=== PATIENT | male | born 1955 | race Caucasian/White ===

== ENCOUNTER 2020-12-15 09:15 | Emergency (ER) | payer MEDICARE, MEDICAID, SELFPAY ==
--- NOTE | ~2020-12-15 | XR_ITS ---
EXAMINATION: XR WRIST, LEFT CLINICAL INFORMATION: Fall. Pain. COMPARISON: None TECHNIQUE: PA, lateral, and oblique views of the left wrist. FINDINGS: No acute fracture or dislocation is seen. There is a well-corticated soft tissue ossification adjacent to the dorsal wrist seen on the lateral view suggestive of changes related to old trauma. There is arthritis at the first RESIDENTIAL joint with joint space narrowing and osteophyte formation. There is arthritis at the radiocarpal joint with joint space narrowing. There is a disruption of the carpal rows with proximal migration of the capitate bone. There is lateral tilt of the lunate on the lateral view suggestive of DISI. There is a soft tissue calcification of the triangular fibrocartilage complex. There may be cystic changes seen in the scaphoid bone and ulnar styloid. XR/XR wrist LT min 3V IMPRESSION: No acute fracture or dislocation seen. Evidence of old trauma to the dorsal wrist. Arthritis at the first RESIDENTIAL joint and radiocarpal joints. Interruption of the carpal rows with proximal migration of the capitate bone and dorsal tilt of the lunate seen on the lateral view suggestive of DISI. Soft tissue calcification of the triangular fibrocartilage complex.
--- NOTE | ~2020-12-15 | XR_ITS ---
EXAMINATION: XR CHEST CLINICAL INFORMATION: Hypoxia COMPARISON: Previous chest x-ray April 2019 TECHNIQUE: Frontal view of the chest was obtained. FINDINGS: Exam is limited due to patient positioning. The cardiac and mediastinal contours are stable. There is a density projecting over the heart probably related to an esophageal hernia. This is unchanged. There is increased attenuation at the left lateral costophrenic angle. This may be related to overlying soft tissues. The lungs are otherwise clear. There is no pleural effusion or pneumothorax. There are degenerative changes of the spine. There are postsurgical changes to the right shoulder. There is an old right distal clavicle fracture. XR/XR chest 1V IMPRESSION: Limited exam due to patient positioning. No evidence for acute disease in the chest.
--- NOTE | ~2020-12-15 | CT_ITS ---
EXAMINATION: CT HEAD WITHOUT CONTRAST CLINICAL INFORMATION: Head injury. COMPARISON: CT brain 09/30/2015 and TECHNIQUE: Contiguous axial imaging was performed from the skull base to vertex without intravenous administration of contrast. This CT examination was performed using dose optimization techniques as appropriate, variously including the following: *Automated exposure control *Adjustment of mA and/or kV according to patient size (this includes techniques or standardized protocols for targeted exams where dose is matched to indication/reason for exam; i.e. extremities or head) *Use of iterative reconstruction technique DLP: 913 mGy-cm FINDINGS: There is no evidence of acute intracranial hemorrhage or territorial infarction. No abnormal mass effect or midline shift is seen. Sandy to white matter differentiation is well preserved. No extra-axial fluid collections are identified. The lateral ventricles are enlarged with mild asymmetry of the left lateral ventricle slightly larger. It is unchanged to previous exam from 2016. Mild prominence of cortical sulci and subarachnoid space seen in the frontal regions bilaterally. No sandy matter abnormality seen. There is no edema or mass effect. The osseous structures and soft tissues are normal. The mastoid air cells and visualized portions of the paranasal sinuses are well aerated. CT/CT head/brain wo con IMPRESSION: No acute intracranial process seen. Age-related cerebral volume loss. No major change since previous study 09/30/2015.
[2020-12-15 09:28] VITALS: BP 120/64; PULSE 86; O2SAT 94
[2020-12-15 09:29] VITALS: BP 110/56; PULSE 96; RESP 20; TEMP 36.7; O2SAT 90; BMI 36.7
--- NOTE | 2020-12-15 09:42 | ED.FALL ---
HPI - Fall General Chief Complaint: Fall Stated Complaint: fall/ blood thiners Time Seen by Provider: 12/15/20 09:37 Source: patient and EMS Mode of arrival: EMS Limitations: no limitations History of Present Illness HPI Narrative: 65-year-old male came in by ambulance for evaluation of mechanical fall. Patient's lives in assisted living mostly functional and independent, patient stated that his leg gave up and fell hit his head and lytes rest, patient is on Eliquis for atrial fibrillation, declined LOC, no neck pain, no headache. the only complaint is right wrist pain. Related Data Home Medications Medication Instructions Recorded Confirmed acetaminophen 650 mg 650 mg PO Q8H 08/05/20 08/05/20 tablet,extended release albuterol sulfate 2.5 mg INHALATION Q4-6H PRN 08/05/20 08/05/20 albuterol sulfate 90 mcg/actuation 2 puff INHALATION Q4-6H PRN 08/05/20 08/05/20 aerosol inhaler aripiprazole 15 mg tablet 15 mg PO DAILY 08/05/20 08/05/20 calcium carb 800 mg-magnes hydrox ml PO 08/05/20 08/05/20 270 mg-simeth 80 mg/10 mL oral susp lithium carbonate 150 mg capsule 150 mg PO DAILY cap 08/05/20 08/05/20 loperamide 2 mg capsule 2 mg PO QID PRN 08/05/20 08/05/20 rivaroxaban 20 mg tablet 20 mg PO DAILY 08/05/20 08/05/20 tiotropium bromide 18 mcg capsule 1 cap INHALATION DAILY 08/05/20 08/05/20 with inhalation device Previous Rx's Medication Instructions Recorded terazosin 5 mg capsule 5 mg PO BEDTIME #28 cap 06/12/20 trazodone 50 mg tablet 50 mg PO BEDTIME #28 tab 06/12/20 cholecalciferol (vitamin D3) 50 50 mcg PO DAILY #28 cap 10/10/20 mcg (2,000 unit) capsule duloxetine 60 mg capsule,delayed 60 mg PO BEDTIME #28 cap 10/10/20 release omeprazole 20 mg capsule,delayed 20 mg PO BID #56 cap 10/10/20 release ferrous sulfate 325 mg (65 mg 325 mg PO BID #56 tab 11/07/20 iron) tablet budesonide-formoterol HFA 160 2 puff PO BID 30 Days #10.2 g 11/27/20 mcg-4.5 mcg/actuation aerosol inhaler Allergies Allergy/AdvReac Type Severity Reaction Status Date / Time celery [CELERY] Allergy Severe LIPS SWELL Unverified 12/15/20 11:42 mayonnaise [MAYONNAISE] Allergy Mild HIVES Unverified 12/15/20 11:42 HAYFEVER AdvReac Mild RUNNY NOSE Uncoded 12/15/20 11:42 Review of Systems Review of Systems: All other systems are reviewed and are negative Constitutional: Reports as per HPI and Reports no additional constitutional complaints Eyes: Reports as per HPI and Reports no additional eye complaints Reports system reviewed and no additional complaints, except as documented Cardiovascular: Reports as per HPI and Reports no additional cardiovascular complaints Respiratory: Reports as per HPI and Reports no additional respiratory complaints Gastrointestinal: Reports as per HPI and Reports no additional gastrointestinal complaints Genitourinary: Reports no additional female genitourinary complaints Musculoskeletal: Reports no additional musculoskeletal complaints Skin/Breast: Reports system reviewed and no additional complaints, except as docu Psychiatric: Reports no additional psychiatric complaints Endocrine: Reports no additional endocrine complaints Hematologic/Lymphatic: Reports no additional hematologic/lymphatic complaints Allergic/Immunologic: Reports no additional allergic/immunologic complaints Reports system reviewed and no additional complaints, except as documented and Reports Abnormal speech present [facility] Past Medical History Medical History Acute meniscal injury of left knee Alcohol abuse Anxiety and depression BPH (benign prostatic hyperplasia) Cholelithiasis COPD (chronic obstructive pulmonary disease) Erectile dysfunction GERD (gastroesophageal reflux disease) Hypertension Hypogonadism Obesity (BMI 30-39.9) Osteoarthritis Peripheral vascular disease Pulmonary embolism Thrombophlebitis of right leg Tobacco abuse Tubular adenoma of colon Ventral hernia Surgical History Closed right clavicular fracture History of tonsillectomy No pertinent past surgical history Family History Family History Father CVD (cardiovascular disease) Mother Hypertension Brother No problems noted. Social History Social History Alcohol intake: never Smoking Status: Current every day smoker Cigarettes Per Day: 6 Advance Directives: Yes Advance Directives Information Provided: No Advance Directives on File: No Physical Exam Vital Signs: Vital Signs: Last Vital Signs Temp 98.1 F 12/15/20 09:29 Pulse 87 12/15/20 11:37 Resp 18 12/15/20 11:37 BP 121/53 L 12/15/20 11:37 Pulse Ox 90 L 12/15/20 11:37 Body Mass Index 36.7 Vital signs have been reviewed as appeared to be correct. Blood pressure normal. Heart rate normal. Respiration rate normal. Temperature normal. Oxygen saturation normal. Appearance: Alert. Oriented X3. No acute distress. Head: Normal external exam. Normocephalic. Atraumatic. No Maier signs noted. No raccoon eyes noted Eyes: PERRLA. EOMI. Conjunctiva and sclera normal. Eyelids normal. ENT: TM's Normal. Pharynx normal. Uvula midline. Moist mucous membranes. No trismus noted. No drooling noted. No muffled voice noted. Neck: Normal inspection. Neck supple. FROM. No adenopathy. Thyroid Normal. No meningeal signs. No neck mass noted. CVS: Normal heart rate and rhythm. Heart sound normal. No murmurs noted. Pulses normal throughout. Respiratory: No respiratory distress. Painless inspiration. Breath sounds normal. No wheezes/rales/rhonchi noted. Chest nontender. No accessory muscle usage noted or decreased air movement noted. Abdomen: Soft and nontender. Bowel sounds normal in all 4 quadrants. No distention noted. No organomegaly noted. No visible injury noted. Back: No CVA tenderness. Full range of motion noted. Skin: Skin warm and dry. Normal skin color. Normal skin turgor. No rashes/lesions/lacerations noted. Extremities: No lower extremity edema. Extremities exhibit normal range of motion. Mild tenderness left wrist no swelling, no deformity.. Neuro: Oriented X 3. No motor deficit. No sensory deficit. Reflexes normal. Course Course Course Narrative: Assessment and plan. Mechanical fall, patient had a head injury on quis, head CT is unremarkable, GCS of 15, no neurological deficit. No acute fracture of left wrist that x-ray is consistent with dorsal intercalated segment instability (DISI) deformity which is an old deformity requiring no acute intervention today. Reevaluation(s) Reevaluation #1: Patient was here initially for evaluation of mechanical fall had negative radiographic studies in the emergency department, patient was ready discharge noted that he has pulse oximetry of 90% on room air, had chest x-ray and other blood workup which is at his baseline, reviewing patient chart patient with history of COPD, with chronic elevation of bicarb, with baseline oxygenation in the low 90% patient is not using supplemental oxygen at home. Patient clinically appears stable to be discharged and follow up with his primary doctor. MDM - Fall Lab Data Attestation: I reviewed the patient's lab results. Result diagrams: 12/15/20 11:48 12/15/20 11:48 Labs: Lab Results 12/15/20 12/15/20 12/15/20 Range/Units 11:48 11:48 11:48 WBC 6.2 (4.8-10.8) X10*3/uL RBC 4.45 L (4.60-5.80) X10*6/uL Hgb 13.0 L (14.0-18.0) g/dl Hct 41.7 L (42-52) % MCV 93.7 (80-98) fL MCH 29.2 (27.0-33.0) pg MCHC 31.2 (31.0-36.0) g/dl RDW 13.4 (11.0-16.0) % Plt Count 194 (160-400) X10*3/uL MPV 8.6 L (9.4-12.4) fL Immature Gran % (Auto) 0.3 (0.0-0.4) % Neut % (Auto) 69.3 (45-73) % Lymph % (Auto) 14.6 L (20-40) % [place] % (Auto) 10.8 (2-11) % Eos % (Auto) 4.4 H (0-4) % Baso % (Auto) 0.6 (0-2) % Lymph # (Auto) 0.9 L (1.2-4.9) X10*3/uL [place] # (Auto) 0.7 (0.1-1.2) X10*3/uL Eos # (Auto) 0.3 (0.0-0.4) X10*3/uL Baso # (Auto) 0.0 (0.0-0.2) X10*3/uL Abs Immat Gran (auto) 0.02 (0.00-0.03) X10*3/uL Absolute Neuts (auto) 4.3 (2.0-8.3) X10*3/uL Absolute Nucleated RBC 0.000 (0.0-0.012) X10*3/uL Nucleated RBC % (auto) 0.0 (0.0-0.2) /100WBC Sodium 138 (135-145) mmol/L Potassium 4.7 (3.3-5.1) mmol/L Chloride 103 (96-108) mmol/L Carbon Dioxide 32 H (22-29) mmol/L Anion Gap 8 L (12-20) BUN 14 (9-16) mg/dL Creatinine 0.85 (0.5-1.4) mg/dL Estim Creat Clear Calc 134.4 Estimated GFR > 60 Random Glucose 82 (60-115) mg/dL Calcium 9.1 (8.4-10.2) mg/dL B-Natriuretic Peptide 26 (<100) pg/mL COVID-19 ([facility]) (Negative) COVID-19 Clin Com 12/15/20 Range/Units 11:48 WBC (4.8-10.8) X10*3/uL RBC (4.60-5.80) X10*6/uL Hgb (14.0-18.0) g/dl Hct (42-52) % MCV (80-98) fL MCH (27.0-33.0) pg MCHC (31.0-36.0) g/dl RDW (11.0-16.0) % Plt Count (160-400) X10*3/uL MPV (9.4-12.4) fL Immature Gran % (Auto) (0.0-0.4) % Neut % (Auto) (45-73) % Lymph % (Auto) (20-40) % [place] % (Auto) (2-11) % Eos % (Auto) (0-4) % Baso % (Auto) (0-2) % Lymph # (Auto) (1.2-4.9) X10*3/uL [place] # (Auto) (0.1-1.2) X10*3/uL Eos # (Auto) (0.0-0.4) X10*3/uL Baso # (Auto) (0.0-0.2) X10*3/uL Abs Immat Gran (auto) (0.00-0.03) X10*3/uL Absolute Neuts (auto) (2.0-8.3) X10*3/uL Absolute Nucleated RBC (0.0-0.012) X10*3/uL Nucleated RBC % (auto) (0.0-0.2) /100WBC Sodium (135-145) mmol/L Potassium (3.3-5.1) mmol/L Chloride (96-108) mmol/L Carbon Dioxide (22-29) mmol/L Anion Gap (12-20) BUN (9-16) mg/dL Creatinine (0.5-1.4) mg/dL Estim Creat Clear Calc Estimated GFR Random Glucose (60-115) mg/dL Calcium (8.4-10.2) mg/dL B-Natriuretic Peptide (<100) pg/mL COVID-19 ([facility]) Negative (Negative) COVID-19 Clin Com See Note Imaging Data Left wrist x-ray: Radiologist's impression: No acute fracture or dislocation seen. Evidence of old trauma to the dorsal wrist. Arthritis at the first LONG-TERM joint and radiocarpal joints. Interruption of the carpal rows with proximal migration of the capitate bone and dorsal tilt of the lunate seen on the lateral view suggestive of DISI. Soft tissue calcification of the triangular fibrocartilage complex. Head CT: Radiologist's impression: No acute intracranial process seen. Age-related cerebral volume loss. No major change since previous study 09/30/2015. Chest x-ray: Radiologist's impression: Limited exam due to patient positioning. No evidence for acute disease in the chest. Discharge Plan Discharge Clinical Impression: COPD (chronic obstructive pulmonary disease) Accident due to mechanical fall without injury Qualifiers: Encounter type: initial encounter Qualified Code(s): W19.XXXA - Unspecified fall, initial encounter Head injury Qualifiers: Encounter type: initial encounter Qualified Code(s): S09.90XA - Unspecified injury of head, initial encounter DISI (dorsal intercalated segment instability) Qualifiers: Laterality: left Qualified Code(s): M25.332 - Other instability, left wrist Patient Disposition: Home, Self-Care Additional Instructions: Follow-up with your primary doctor to assess for COPD and chronic hypoxia. Prescriptions: No Action terazosin 5 mg capsule 5 mg PO BEDTIME Qty: 28 RF: 5 trazodone 50 mg tablet 50 mg PO BEDTIME Qty: 28 RF: 5 duloxetine 60 mg capsule,delayed release(DR/EC) 60 mg PO BEDTIME Qty: 28 RF: 5 omeprazole 20 mg capsule,delayed release(DR/EC) 20 mg PO BID Qty: 56 RF: 5 cholecalciferol (vitamin D3) [Vitamin D3] 50 mcg (2,000 unit) capsule 50 mcg PO DAILY Qty: 28 RF: 5 ferrous sulfate 325 mg (65 mg iron) tablet 325 mg PO BID Qty: 56 RF: 11 budesonide-formoterol [Symbicort] 160-4.5 mcg/actuation HFA aerosol inhaler 2 puff PO BID 30 Days Qty: 10.2 RF: 11 aripiprazole [Abilify] 15 mg tablet 15 mg PO DAILY RF: 0 lithium carbonate 150 mg capsule 150 mg PO DAILY RF: 0 albuterol sulfate 2.5 mg /3 mL (0.083 %) solution for nebulization 2.5 mg inhalation Q4-6H PRNRF: 0 acetaminophen 650 mg tablet extended release 650 mg PO Q8H RF: 0 loperamide 2 mg capsule 2 mg PO QID PRNRF: 0 Mylanta Tonight 800-270-80 mg/10 mL suspension PO RF: 0 albuterol sulfate [Ventolin HFA] 90 mcg/actuation HFA aerosol inhaler 2 puff inhalation Q4-6H PRNRF: 0 Spiriva with HandiHaler 18 mcg capsule, w/inhalation device 1 cap inhalation DAILY RF: 0 Xarelto 20 mg tablet 20 mg PO DAILY RF: 0 Referrals: Po,Thea Heck MD [Primary Care Provider] - 2 days
[2020-12-15 11:37] VITALS: BP 121/53; PULSE 87; RESP 18; O2SAT 90
--- NOTE | 2020-12-15 11:40 | PC.NURSE ---
Pt's sats 90% on room air. Known history of COPD. LLL wheezing. MD aware. Discharge on hold at this time. placing orders.
[2020-12-15 11:54] LABS: MANUAL DIFF FLAG NO
[2020-12-15 12:02] LABS: Basophils Percent Auto 0.6 % (0-2); Eosinophils Absolute Auto 0.3 X10*3/uL (0.0-0.4); Eosinophils Percent Auto 4.4 % (0-4); Hematocrit 41.7 % (42-52); Imm Gran Abs Auto 0.02 X10*3/uL (0.00-0.03); Imm Gran Pct Auto 0.3 % (0.0-0.4); Lymphocytes Absolute Auto 0.9 X10*3/uL (1.2-4.9); Lymphocytes Percent Auto 14.6 % (20-40); Mean Corpuscular HGB Conc 31.2 g/dl (31.0-36.0); Mean Corpuscular Hemoglobin 29.2 pg (27.0-33.0); Mean Corpuscular Volume 93.7 fL (80-98); Mean Platelet Volume 8.6 fL (9.4-12.4); Monocytes Absolute Auto 0.7 X10*3/uL (0.1-1.2); Monocytes Percent Auto 10.8 % (2-11); Neutrophils Absolute Auto 4.3 X10*3/uL (2.0-8.3); Neutrophils Percent Auto 69.3 % (45-73); Platelet Count 194 X10*3/uL (160-400); Red Blood Count 4.45 X10*6/uL (4.60-5.80); Red Cell Distribution Width 13.4 % (11.0-16.0); White Blood Count 6.2 X10*3/uL (4.8-10.8)
[2020-12-15 12:19] LABS: COVID-19 Test Negative (Negative)
[2020-12-15 12:26] LABS: Anion Gap 8 (12-20); Blood Urea Nitrogen 14 mg/dL (9-16); Calcium 9.1 mg/dL (8.4-10.2); Carbon Dioxide 32 mmol/L (22-29); Chloride 103 mmol/L (96-108); Creatinine Clr Calc Pharmacy 134.4; Estimated Glomerular Filt Rate > 60; Glucose Random 82 mg/dL (60-115); Potassium 4.7 mmol/L (3.3-5.1); Sodium 138 mmol/L (135-145)
[2020-12-15 12:30] LABS: B Type Natriuretic Peptide 26 pg/mL (<100)
--- NOTE | 2020-12-15 13:20 | PC.NURSE ---
Pt's sats remain 90 on room air. Report given to [facility] nursing staff for discharge. The nursing staff state that he had been on o2 at night in the past but he refuses to wear it. Per ED MD recommendation to visit pcp soon to re-evaluate the need for home o2. This was explained to the nursing staff at [facility].
== END 2020-12-15 14:00 | disposition home or self-care (01) ==
PROVIDERS: Emergency Provider Emergency Medicine; PCP Internal Medicine
DX: J44.9 Chronic obstructive pulmonary disease, unspecified (principal); S09.90XA Unspecified injury of head, initial encounter; W01.0XXA Fall on same level from slipping, tripping and stumbling without subsequent striking against object, initial encounter; M25.332 Other instability, left wrist; I10 Essential (primary) hypertension; F17.210 Nicotine dependence, cigarettes, uncomplicated; Z20.822 Contact with and (suspected) exposure to COVID-19; Y93.9 Activity, unspecified; Y92.099 Unspecified place in other non-institutional residence as the place of occurrence of the external cause; Y99.9 Unspecified external cause status; Z86.711 Personal history of pulmonary embolism; Z79.01 Long term (current) use of anticoagulants; Z91.19 Patient's noncompliance with other medical treatment and regimen; Z99.81 Dependence on supplemental oxygen
CPT/HCPCS: 36415; 70450; 71045; 73110; 80048; 83880; 85025; 87635; 99283; 99284

== ENCOUNTER 2021-03-18 09:56 | Outpatient (REF) | payer MEDICARE, MEDICAID, SELFPAY ==
--- NOTE | ~2021-03-18 | XR_ITS ---
EXAMINATION: XR KNEE, LEFT CLINICAL INFORMATION: Pain. COMPARISON: None. TECHNIQUE: 4 views of the left knee. FINDINGS: There is loss of tricompartment joint space with periarticular spurring. No abnormal joint effusion seen. There is a small suprapatellar joint effusion noted. There is no loose bodies or bony erosive changes. XR/XR knee LT 4V IMPRESSION: Degenerative arthritic changes tricompartment with periarticular moderate spurring and mild suprapatellar joint effusion.
[2021-03-18 11:39] LABS: MANUAL DIFF FLAG NO
[2021-03-18 11:45] LABS: Basophils Absolute Auto 0.1 X10*3/uL (0.0-0.2); Basophils Percent Auto 0.9 % (0-2); Eosinophils Absolute Auto 0.1 X10*3/uL (0.0-0.4); Eosinophils Percent Auto 1.9 % (0-4); Hematocrit 44.9 % (42-52); Hemoglobin 13.9 g/dl (14.0-18.0); Imm Gran Abs Auto 0.03 X10*3/uL (0.00-0.03); Imm Gran Pct Auto 0.5 % (0.0-0.4); Immature Retic Fraction 8.2 % (2.3-13.4); Lymphocytes Percent Auto 15.1 % (20-40); Mean Corpuscular Hemoglobin 28.7 pg (27.0-33.0); Mean Corpuscular Volume 92.6 fL (80-98); Mean Platelet Volume 9.1 fL (9.4-12.4); Monocytes Absolute Auto 0.7 X10*3/uL (0.1-1.2); Neutrophils Absolute Auto 4.6 X10*3/uL (2.0-8.3); Neutrophils Percent Auto 71.6 % (45-73); Platelet Count 194 X10*3/uL (160-400); Red Blood Count 4.85 X10*6/uL (4.60-5.80); Red Cell Distribution Width 14.2 % (11.0-16.0); Reticulocyte Percent 1.3 % (0.5-1.8); Reticulocytes Absolute 0.064 X10*6/uL (0.026-0.095); White Blood Count 6.5 X10*3/uL (4.8-10.8)
[2021-03-18 12:12] LABS: Alanine Aminotransferase 9 U/L (0-40); Albumin Level 4.1 g/dL (3.5-5.0); Alkaline Phosphatase 77 U/L (39-117); Anion Gap 12 (12-20); Aspartate Amino Transferase 15 U/L (5-37); Bilirubin Total 0.5 mg/dL (0.0-1.0); Blood Urea Nitrogen 17 mg/dL (9-16); Calcium 9.5 mg/dL (8.4-10.2); Carbon Dioxide 33 mmol/L (22-29); Chloride 100 mmol/L (96-108); Cholesterol 138 mg/dL; Estimated Glomerular Filt Rate > 60; Glucose Random 100 mg/dL (60-115); HDL Cholesterol 47 mg/dL; Iron 69 mcg/dL (45-160); LDL Cholesterol Calculated 79 mg/dl; Potassium 4.9 mmol/L (3.3-5.1); Sodium 140 mmol/L (135-145); Total Protein 6.4 g/dL (6.5-8.0); Triglycerides 61 mg/dL
[2021-03-18 12:24] LABS: Percent Iron Saturation 29 % (15-50); Total Iron Binding Capacity 234 mcg/dL (228-428); Unsaturated Iron Binding 165 ug/dL
[2021-03-18 12:26] LABS: Ferritin 107 ng/mL (20-250); Free T4 (Free Thyroxine) 1.16 ng/dL (0.71-1.85); Prostate Specific Antigen Scr 0.97 ng/mL (<0.05-4.0); Thyroid Stimulating Hormone 1.01 uIU/mL (0.32-4.0)
[2021-03-18 12:41] LABS: Folate 7.9 ng/mL (> or = 4.0); Vitamin B12 519 pg/mL (200-900)
== END 2021-03-18 09:57 | disposition home or self-care (01) ==
LOC: HO.LAB 09:56
PROVIDERS: PCP Internal Medicine; Visit Provider Internal Medicine
DX: E78.00 Pure hypercholesterolemia, unspecified (principal); F32.9 Major depressive disorder, single episode, unspecified; F41.9 Anxiety disorder, unspecified; I10 Essential (primary) hypertension; M25.562 Pain in left knee; Z12.5 Encounter for screening for malignant neoplasm of prostate
CPT/HCPCS: 36415; 73564; 80053; 80061; 82607; 82728; 82746; 83540; 84153; 84439; 84443; 85025; 85045

== ENCOUNTER 2021-09-29 13:52 | Emergency (ER) | payer MEDICARE, MEDICAID, SELFPAY ==
--- NOTE | ~2021-09-29 | US_ITS ---
EXAMINATION: US VENOUS ULTRASOUND WITH DOPPLER LOWER EXTREMITY, BILATERAL CLINICAL INFORMATION: Bilateral lower extremity edema and pain COMPARISON: Bilateral DVT study 04/10/2014 TECHNIQUE: Ultrasound of the deep veins is performed from the hip to the calf with compression sonography and color and pulse Doppler assessment. Spectral analysis with color-flow imaging is performed. FINDINGS: RIGHT: There is normal venous compression and respiratory variation and augmented flow. The visualized common femoral vein, superficial femoral vein, profunda femoral vein, popliteal vein, and the trifurcation region shows no evidence of deep venous thrombosis. There is no significant popliteal fossa cyst. LEFT: There is normal venous compression and respiratory variation and augmented flow. The visualized common femoral vein, superficial femoral vein, profunda femoral vein, popliteal vein, and the trifurcation region shows no evidence of deep venous thrombosis. There is no significant posterior popliteal fossa cyst. 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 Similar findings were noted in 2013. If the patient's symptoms persist, followup ultrasound in 5 days 7 days might be of value to exclude proximal propagation from a non-visualized calf vein. US/US venous duplex LE BI IMPRESSION: No DVT demonstrated in either lower extremity. 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
--- NOTE | 2021-09-29 14:05 | ED.GENADULT ---
HPI - General Adult General Chief complaint: General Medical Stated complaint: LEG WEAKNESS Time Seen by Provider: 09/29/21 14:00 Source: patient and EMS Mode of arrival: EMS Limitations: no limitations History of Present Illness HPI narrative: 66 yo male with past medical history significant hypertension , AFib, pulmonary embolism, COPD, anxiety, depression here with reports of bilateral lower leg pain. Patient tells me he has had pain for months with no known injury or trauma. Patient tells me that he does not have pain at rest. He has pain when he starts to ambulate. He says sometimes the pain is so bad that he falls at home. He denies any weakness in the legs, no numbness or tingling in the legs. He denies any fevers, chills, leg swelling, shortness of breath or chest pain. He tells me he has been compliant with his xarelto. He does live in a residential home and he tells me they give him his medications. It is been recommended by his primary care doctor over the last year due to multiple falls that he go to a short-term rehab facility but he declined this. Related Data Home Medications Medication Instructions Recorded Confirmed loperamide 2 mg capsule 2 mg PO QID PRN 08/05/20 09/29/21 tiotropium bromide 18 mcg capsule 1 cap INHALATION DAILY 08/05/20 09/29/21 with inhalation device (Spiriva with HandiHaler) rivaroxaban 20 mg tablet (Xarelto) 20 mg PO QPM 09/29/21 09/29/21 trazodone 50 mg tablet 50 mg PO BEDTIME PRN 09/29/21 09/29/21 Previous Rx's Medication Instructions Recorded ferrous sulfate 325 mg (65 mg 325 mg PO BID #56 tab 11/07/20 iron) tablet budesonide-formoterol HFA 160 2 puff PO BID 30 Days #10.2 g 11/27/20 mcg-4.5 mcg/actuation aerosol inhaler (Symbicort) aripiprazole 15 mg tablet 15 mg PO QAM #28 tab 01/22/21 lithium carbonate 150 mg capsule 150 mg PO BEDTIME #28 cap 01/22/21 terazosin 5 mg capsule 5 mg PO QPM #28 cap 01/22/21 cane #1 ea 02/02/21 cholecalciferol (vitamin D3) 50 50 mcg PO DAILY #90 cap 04/14/21 mcg (2,000 unit) capsule (Vitamin D3) duloxetine 60 mg capsule,delayed 60 mg PO BEDTIME #90 cap 04/14/21 release omeprazole 20 mg capsule,delayed 20 mg PO BID #180 cap 04/14/21 release Allergies Allergy/AdvReac Type Severity Reaction Status Date / Time celery [CELERY] Allergy Severe LIPS SWELL Verified 02/02/21 11:00 mayonnaise [MAYONNAISE] Allergy Mild HIVES Verified 02/02/21 11:00 HAYFEVER AdvReac Mild RUNNY NOSE Uncoded 12/15/20 11:42 Review of Systems Review of Systems: Yes all other systems are reviewed and are negative Constitutional: Constitutional: Reports no additional constitutional complaints, Denies body ache(s), Denies chills, Denies fever(s), Denies headache(s) and Denies weakness Eyes: Eyes: Reports no additional eye complaints and Denies change in vision ENT: Reports system reviewed and no additional complaints, except as documented, Denies dizziness, Denies headache(s), Denies nasal congestion, Denies nasal discharge and Denies neck pain Cardiovascular: Cardiovascular: Reports no additional cardiovascular complaints, Denies chest pain, Denies leg edema and Denies dyspnea Respiratory: Respiratory: Reports no additional respiratory complaints, Denies cough and Denies dyspnea Gastrointestinal: Gastrointestinal: Reports no additional gastrointestinal complaints, Denies abdominal pain, Denies diarrhea, Denies nausea and Denies vomiting Genitourinary: Genitourinary: Denies urinary incontinence Musculoskeletal: Musculoskeletal: Reports no additional musculoskeletal complaints, Denies back pain, Denies arthralgias, Denies joint swelling, Denies neck pain, Denies numbness and Denies tingling Integumentary/Breasts: Skin/Breast: Reports system reviewed and no additional complaints, except as docu and Denies rash Neurologic: Reports system reviewed and no additional complaints, except as documented, Denies Abnormal speech present, Denies dizziness, Denies headache(s), Denies numbness, Denies tingling and Denies weakness PMFSH Past Medical History Attestation statement: The following information was validated with the patient. Source: old records reviewed and nursing notes reviewed Medical History Acute meniscal injury of left knee Alcohol abuse Anxiety and depression BPH (benign prostatic hyperplasia) Cholelithiasis COPD (chronic obstructive pulmonary disease) Erectile dysfunction GERD (gastroesophageal reflux disease) Hypertension Hypogonadism Obesity (BMI 30-39.9) Osteoarthritis Peripheral vascular disease Pulmonary embolism Thrombophlebitis of right leg Tobacco abuse Tubular adenoma of colon Ventral hernia Surgical History Closed right clavicular fracture History of tonsillectomy No pertinent past surgical history Family History Family History Father CVD (cardiovascular disease) Mother Hypertension Brother No problems noted. Social History Social History Housing: Other (intermediate home) Alcohol intake: never Patient Tobacco Use Status: Current everyday Tobacco user Cigarettes Per Day: 6 Advance Directives: No Advance Directives Information Provided: No service: No Current occupational status: retired Physical Exam ED Vital Signs: Vital Signs - 24 hr 09/29/21 16:05 Temperature 98.4 F Pulse Rate 77 Respiratory Rate 18 Blood Pressure 106/30 L Pulse Oximetry 95 BMI result Body Mass Index 40.2 Const Other: +disheveled General: alert and poor hygiene Orientation/consciousness: patient oriented x3 Limitations: no limitations HENMT Head: Yes normal to inspection Ears: hearing grossly normal bilaterally and TM's normal bilaterally General nose exam: Normal external nose present Face and sinus: Yes normal facial exam Mouth: Normal oral and palatal mucosa present Throat: Yes posterior oropharynx normal and Yes tonsils normal Eyes General: appearance normal, both eyes and all related structures Pupils: Equal, round and reactive pupils present Neck Neck: Yes normal visual inspection, Yes full ROM, Yes no lymphadenopathy and Yes no meningeal signs Chest Chest palpation & inspection: normal inspection of the chest Resp Other: Wound expiratory wheezes throughout Effort & Inspection: normal respiratory effort Cardio Rate: regular rate Peripheral pulses: Peripheral pulses 2+ throughout GI Inspection: Yes normal to inspection Palpation (GI): Soft to palpation and nontender Auscultation: normal bowel sounds General: Yes no CVA tenderness Back/Spine/Pelvis Back: no CVA tenderness Thoracic/Lumbar Spine: thoracic and lumbar spine normal to inspection Skin General skin exam: no rashes or lesions noted Neuro Other: LE bilaterally 4/5 strength General: patient oriented x3, moves all extremities, no meningeal signs and Unable to assess gait Cranial nerves: Yes CN's II-XII intact bilaterally, Yes Equal, round and reactive pupils present, Yes Bilaterally intact EOM present, Yes Nystagmus not present, Yes Normal facial strength present and Yes Midline tongue present Cognition (Neuro): normal cognition Speech: No Abnormal speech present Gait exam (Neuro): Unable to assess gait Sensory Exam: Normal double simultaneous stimulation for sensation Extrem Other: 2+ PT/DP pulses discoloration of the LE with no warmth or redness. Unable to illicit pain on exam General: Yes normal to inspection and Yes no pedal edema Course Course Course Narrative: 66 yo male here with complaints of afib/PE on xarelto, HTN, anxiety, depression, COPD, GERD here with reports of LE pain x months no known injury or trauma. Pain is only with walking. No swelling, redness, fever, shortness of breath or chest pain. will check US, labs, COVID screen. Patient is very disheveled, incontinent of urine. He has had multiple falls over the last year and has been recommended that he go to short-term rehab. He has declined this this point. I did discuss this with the patient and he is willing today to go. Therefore once medically cleared will have physical therapy evaluate him and case management get involved 1640-labs are unremarkable. Ultrasound is negative. Patient placed in physician observation pending disposition. PT and CM consults placed. 1800-Sign out to night team pending above Medical Decision Making MDM Narrative Medical decision making narrative: DVT, claudication from arterial disease, peripheral vascular disease Medical Records Medical records reviewed: Yes I reviewed the patient's medical records. Lab Data Lab results reviewed: Yes I reviewed the patient's lab results. Result diagrams: 09/29/21 15:20 09/29/21 15:20 Labs: Lab Results 09/29/21 09/29/21 09/29/21 Range/Units 15:20 15:20 15:20 WBC 7.1 (4.8-10.8) X10*3/uL RBC 4.16 L (4.60-5.80) X10*6/uL Hgb 11.8 L (14.0-18.0) g/dl Hct 38.7 L (42.0-52.0) % MCV 93.0 (80.0-98.0) fL MCH 28.4 (27.0-33.0) pg MCHC 30.5 L (31.0-36.0) g/dl RDW 14.6 (11.0-16.0) % Plt Count 189 (160-400) X10*3/uL MPV 9.1 L (9.4-12.4) fL Immature Gran % (Auto) 0.3 (0.0-0.4) % Neut % (Auto) 75.9 H (45-73) % Lymph % (Auto) 12.9 L (20-40) % [place] % (Auto) 8.4 (2-11) % Eos % (Auto) 2.1 (0-4) % Baso % (Auto) 0.4 (0-2) % Lymph # (Auto) 0.9 L (1.2-4.9) X10*3/uL [place] # (Auto) 0.6 (0.1-1.2) X10*3/uL Eos # (Auto) 0.2 (0.0-0.4) X10*3/uL Baso # (Auto) 0.0 (0.0-0.2) X10*3/uL Abs Immat Gran (auto) 0.02 (0.00-0.03) X10*3/uL Absolute Neuts (auto) 5.4 (2.0-8.3) x10*3/uL Absolute Nucleated RBC 0.000 (0.0-0.012) X10*3/uL Nucleated RBC % (auto) 0.0 (0.0-0.2) /100WBC Sodium 140 (135-145) mmol/L Potassium 5.0 (3.3-5.1) mmol/L Chloride 103 (96-108) mmol/L Carbon Dioxide 33 H (22-29) mmol/L Anion Gap 9 L (12-20) BUN 14 (9-16) mg/dL Creatinine 0.85 (0.5-1.4) mg/dL Estim Creat Clear Calc TNP Estimated GFR > 60 Random Glucose 97 (60-115) mg/dL Calcium 9.0 (8.4-10.2) mg/dL Magnesium 1.9 (1.6-2.6) mg/dL Total Bilirubin 0.3 (0.0-1.0) mg/dL Direct Bilirubin < 0.2 (0.0-0.5) mg/dL AST 15 (5-37) U/L ALT 8 (0-40) U/L Alkaline Phosphatase 64 (39-117) U/L B-Natriuretic Peptide (<100) pg/mL Total Protein 5.8 L (6.5-8.0) g/dL Albumin 3.5 (3.5-5.0) g/dL COVID-19 ([facility]) Invalid (Negative) COVID-19 Clin Com See Note 09/29/21 Range/Units 15:20 WBC (4.8-10.8) X10*3/uL RBC (4.60-5.80) X10*6/uL Hgb (14.0-18.0) g/dl Hct (42.0-52.0) % MCV (80.0-98.0) fL MCH (27.0-33.0) pg MCHC (31.0-36.0) g/dl RDW (11.0-16.0) % Plt Count (160-400) X10*3/uL MPV (9.4-12.4) fL Immature Gran % (Auto) (0.0-0.4) % Neut % (Auto) (45-73) % Lymph % (Auto) (20-40) % [place] % (Auto) (2-11) % Eos % (Auto) (0-4) % Baso % (Auto) (0-2) % Lymph # (Auto) (1.2-4.9) X10*3/uL [place] # (Auto) (0.1-1.2) X10*3/uL Eos # (Auto) (0.0-0.4) X10*3/uL Baso # (Auto) (0.0-0.2) X10*3/uL Abs Immat Gran (auto) (0.00-0.03) X10*3/uL Absolute Neuts (auto) (2.0-8.3) x10*3/uL Absolute Nucleated RBC (0.0-0.012) X10*3/uL Nucleated RBC % (auto) (0.0-0.2) /100WBC Sodium (135-145) mmol/L Potassium (3.3-5.1) mmol/L Chloride (96-108) mmol/L Carbon Dioxide (22-29) mmol/L Anion Gap (12-20) BUN (9-16) mg/dL Creatinine (0.5-1.4) mg/dL Estim Creat Clear Calc Estimated GFR Random Glucose (60-115) mg/dL Calcium (8.4-10.2) mg/dL Magnesium (1.6-2.6) mg/dL Total Bilirubin (0.0-1.0) mg/dL Direct Bilirubin (0.0-0.5) mg/dL AST (5-37) U/L ALT (0-40) U/L Alkaline Phosphatase (39-117) U/L B-Natriuretic Peptide 23 (<100) pg/mL Total Protein (6.5-8.0) g/dL Albumin (3.5-5.0) g/dL COVID-19 ([facility]) (Negative) COVID-19 Clin Com Imaging Data Venous US: Attestation: I personally reviewed and interpreted this imaging study as follows: Radiologist's impression: [place] [id number] Ultrasound Report Signed Patient: Misha Gillespie MR#: [id number] : 1955 Acct:[id number] Age/Sex: 66 / M ADM Date: 09/29/21 Loc: .ED Attending Dr: Ordering Physician: Kristal Luna NP Date of Service: 09/29/21 Procedure(s): US venous duplex LE BI Accession Number(s): [id number] cc: Kristal Luna NP~ EXAMINATION:? US VENOUS ULTRASOUND WITH DOPPLER LOWER EXTREMITY, BILATERAL CLINICAL INFORMATION:? Bilateral lower extremity edema and pain COMPARISON:? Bilateral DVT study 04/10/2014 TECHNIQUE: Ultrasound of the deep veins is performed from the hip to the calf with compression sonography and color and pulse Doppler assessment. Spectral analysis with color-flow imaging is performed. FINDINGS: RIGHT: There is normal venous compression and respiratory variation and augmented flow. The visualized common femoral vein, superficial femoral vein, profunda femoral vein, popliteal vein, and the trifurcation region shows no evidence of deep venous thrombosis. ? There is no significant popliteal fossa cyst. LEFT: There is normal venous compression and respiratory variation and augmented flow. The visualized common femoral vein, superficial femoral vein, profunda femoral vein, popliteal vein, and the trifurcation region shows no evidence of deep venous thrombosis. ? There is no significant posterior popliteal fossa cyst. 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 Similar findings were noted in 2013. If the patient's symptoms persist, followup ultrasound in 5 days 7 days might be of value to exclude proximal propagation from a non-visualized calf vein. US/US venous duplex LE BI IMPRESSION: No DVT demonstrated in either lower extremity. 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 Discharge Plan Discharge Clinical Impression: Chronic leg pain Patient Disposition: Still a Patient Prescriptions: No [facility] ferrous sulfate 325 mg (65 mg iron) tablet 325 mg PO BID Qty: 56 11RF budesonide-formoterol [Symbicort] 160-4.5 mcg/actuation HFA aerosol inhaler 2 puff PO BID 30 Days Qty: 10.2 11RF lithium carbonate 150 mg capsule 150 mg PO BEDTIME Qty: 28 0RF aripiprazole 15 mg tablet 15 mg PO QAM Qty: 28 0RF terazosin 5 mg capsule 5 mg PO QPM Qty: 28 0RF cholecalciferol (vitamin D3) [Vitamin D3] 50 mcg (2,000 unit) capsule 50 mcg PO DAILY Qty: 90 1RF duloxetine 60 mg capsule,delayed release(DR/EC) 60 mg PO BEDTIME Qty: 90 1RF omeprazole 20 mg capsule,delayed release(DR/EC) 20 mg PO BID Qty: 180 1RF trazodone 50 mg tablet 50 mg PO BEDTIME PRN (Reason: Insomnia) 0RF Xarelto 20 mg tablet 20 mg PO QPM 0RF Rx Instructions: must administer with evening meal loperamide 2 mg capsule 2 mg PO QID PRN (Reason: Diarrhea) 0RF Spiriva with HandiHaler 18 mcg capsule, w/inhalation device 1 cap inhalation DAILY 0RF (DME) cane Device See Rx Instructions .ROUTE .MEDSUPPLY Qty: 1 0RF Rx Instructions: As directed bigger and taller cane
[2021-09-29 15:26] LABS: MANUAL DIFF FLAG NO
[2021-09-29 15:27] LABS: Basophils Percent Auto 0.4 % (0-2); Eosinophils Absolute Auto 0.2 X10*3/uL (0.0-0.4); Eosinophils Percent Auto 2.1 % (0-4); Hematocrit 38.7 % (42.0-52.0); Hemoglobin 11.8 g/dl (14.0-18.0); Imm Gran Abs Auto 0.02 X10*3/uL (0.00-0.03); Imm Gran Pct Auto 0.3 % (0.0-0.4); Lymphocytes Absolute Auto 0.9 X10*3/uL (1.2-4.9); Lymphocytes Percent Auto 12.9 % (20-40); Mean Corpuscular HGB Conc 30.5 g/dl (31.0-36.0); Mean Corpuscular Hemoglobin 28.4 pg (27.0-33.0); Mean Platelet Volume 9.1 fL (9.4-12.4); Monocytes Absolute Auto 0.6 X10*3/uL (0.1-1.2); Monocytes Percent Auto 8.4 % (2-11); Neutrophils Absolute Auto 5.4 x10*3/uL (2.0-8.3); Neutrophils Percent Auto 75.9 % (45-73); Platelet Count 189 X10*3/uL (160-400); Red Blood Count 4.16 X10*6/uL (4.60-5.80); Red Cell Distribution Width 14.6 % (11.0-16.0); White Blood Count 7.1 X10*3/uL (4.8-10.8)
[2021-09-29 15:51] LABS: Alanine Aminotransferase 8 U/L (0-40); Albumin Level 3.5 g/dL (3.5-5.0); Alkaline Phosphatase 64 U/L (39-117); Anion Gap 9 (12-20); Aspartate Amino Transferase 15 U/L (5-37); Bilirubin Direct < 0.2 mg/dL (0.0-0.5); Bilirubin Total 0.3 mg/dL (0.0-1.0); Blood Urea Nitrogen 14 mg/dL (9-16); Carbon Dioxide 33 mmol/L (22-29); Chloride 103 mmol/L (96-108); Estimated Glomerular Filt Rate > 60; Glucose Random 97 mg/dL (60-115); Magnesium 1.9 mg/dL (1.6-2.6); Sodium 140 mmol/L (135-145); Total Protein 5.8 g/dL (6.5-8.0)
[2021-09-29 15:57] LABS: B Type Natriuretic Peptide 23 pg/mL (<100)
[2021-09-29 16:05] VITALS: BP 106/30; PULSE 77; RESP 18; TEMP 36.9; O2SAT 95; BMI 40.2
[2021-09-29 16:07] LABS: COVID-19 Test Invalid (Negative)
--- NOTE | 2021-09-29 16:36 | PHA.MEDREC ---
Pharmacy Consult ? Medication Reconciliation Pharmacy has completed the medication reconciliation.
[2021-09-29 17:45] VITALS: BP 138/73; PULSE 70; RESP 15; TEMP 36.5; O2SAT 93
[2021-09-29 21:18] VITALS: BP 101/52; PULSE 73; RESP 16; TEMP 36.8; O2SAT 89
[2021-09-29 21:22] VITALS: O2SAT 94
[2021-09-29 22:00] VITALS: RESP 18; O2SAT 96
[2021-09-30] VITALS (9 sets, daily range): BP systolic 98–136; BP diastolic 37–63; PULSE 54–84; RESP 14–18; TEMP 36.4–37.1; O2SAT 92–97
[2021-09-30] MEDS: Acetaminophen 325 MG TABLET 650 MG PO ×2 (01:41→08:03)
[2021-09-30 06:10] LABS: COVID-19 Test Negative (Negative)
--- NOTE | 2021-09-30 07:43 | PC.NURSE ---
PT at bedside with patient at this time. patient reports ongoing headache and requesting tylenol
--- NOTE | 2021-09-30 11:08 | MHC.CM.ED ---
Addendum entered by Irma Smith 09/30/21 11:43: [facility] not able to offer a bed today. [facility] is first choice. Will offer a bed if PCR is negative and when PASRR level 2 is obtained. Original Note: Received case management consult overnight. Patient came to ER due to leg weakness. Work up esesentialy negative. Physical therapy eval completed. Short term rehab is recommended. Met with patient in regards to discharge planning. Patient is a resident of [facility], uses a cane for mobility and had no services prior to coming to the ER. PCP verified. Copy of HCP verified to be on file. Patient received 3 Pfizer vaccines on 09/11, 10/02 and 06/17. List of facilities provided to patient from [facility]. Choices: 1) [facility] 2) [facility]. Referrals made via [employer]. Due to patient's depression/anxiety history and residing in a rest home, patient will need a Level 2 PASRR DM exemption letter. PASRR DM already submitted. Continue to monitor for d/c needs.
--- NOTE | 2021-09-30 12:06 | MHC.CARE ---
CARE Team social work nurse intern met with pt at the request of case management, as pt has a reported psychiatric history. Pt is sitting in bed, making good eye contact and is well engaged with director of social media marketing. When asked about his mood, he reports feeling fine. Pt coughs frequently and struggles to hear at times, but continues to work with director of social media marketing. Pt reports a hx of anxiety and depression and mental health treatment, but denies current symptoms and does not have current providers. Pt currently takes psychiatric medications as prescribed. Pt denies SI/HI/, and reported a very remote suicide attempt by overdose (over 20 years ago). Pt is not currently in a psychiatric crisis and does not require a higher level of mental health treatment at this time. Pt has natural supports, siting several close friendships. Pt would like to go to [facility], and he is appropriate for this level of care from a mental health standpoint. CARE online content coordinator and social work rice field worker LOYDA Crabtree is consulted and agrees with this assessment. Social work nurse intern speaks with Irma Smith nursing shelter case manager, who is in the process of referring pt to [facility].
[2021-09-30] MEDS: ARIPiprazole 15 MG TABLET PO (12:37)
[2021-09-30] MEDS: Cholecalciferol (Vitamin D3) 25 MCG TABLET 50 MCG PO (12:37)
[2021-09-30 13:11] LABS: Influenza A PCR NEGATIVE (Negative); Influenza B PCR NEGATIVE (Negative); Resp Syncy Virus RNA Qual PCR NEGATIVE (Negative); SARS COV2 PCR INHOUSE NEGATIVE (Negative)
--- NOTE | 2021-09-30 13:12 | PC.NURSE ---
unable to obtain pulse ox reading from patient due to shivering and low temp. patient placed in bear hugger, will reattempt when patient warmer. patient breathing easily and oriented at this time, no obvious distress
--- NOTE | 2021-09-30 14:32 | PC.NURSE ---
patient assisted up to bathroom by staff. no obvious distress. resting comfortably, denies any additional needs. will continue to monitor
--- NOTE | 2021-09-30 16:03 | MHC.CM.ED ---
Received PASRR exemption letter from [facility]. Patient can leave for [facility] at 530pm. [facility] booked. [facility] with chart. Patient, Akbar RN and Dr Hernandez aware. Continue to monitor for d/c needs.
[2021-09-30] MEDS: Rivaroxaban 20 MG TABLET PO (16:11)
[2021-09-30] MEDS: Omeprazole 20 MG CAPSULE.DR PO (16:11)
== END 2021-09-30 17:40 | disposition skilled nursing facility (03) ==
PROVIDERS: Nurse Practitioner Family; Emergency Provider Emergency Medicine; PCP Internal Medicine
DX: M79.604 Pain in right leg (principal); M79.605 Pain in left leg; R60.0 Localized edema; R06.02 Shortness of breath; R07.9 Chest pain, unspecified; I48.91 Unspecified atrial fibrillation; Z20.822 Contact with and (suspected) exposure to COVID-19; Z79.899 Other long term (current) drug therapy
CPT/HCPCS: 0241U; 36415; 80048; 80076; 83735; 83880; 85025; 87635; 93970; 97162; 99284; 99285